=== PATIENT | male | born 1975 ===

== ENCOUNTER 2023-03-01 20:23 | Inpatient (IN) | payer OTHER ==
[~2023-03-01] VITALS: Ht 167.6 cm; Wt 78.6 kg
[2023-03-01] MEDS ORDERED: PANTOPRAZOLE SODIUM IV 80 MG in IV DEXTROSE 5% 100 ML IV ONE (21:15)
[2023-03-01] MEDS ORDERED: PANTOPRAZOLE SODIUM 40 MG VIAL ONE (21:19)
[2023-03-01 21:25] LABS: BASOPHILS # (AUTO) 0.1 K/UL (0.0-0.2); BASOPHILS % (AUTO) 1.2 % (0.0-2.0); EOSINOPHILS % (AUTO) 0.5 % (0.0-7.0); HEMATOCRIT 26.4 % (36.7-47.1); HEMOGLOBIN 7.7 g/dL (12.5-16.3); LYMPHOCYTES # (AUTO) 1.5 K/uL (0.8-4.8); LYMPHOCYTES % (AUTO) 19.6 % (20.5-51.5); MEAN CORPUSCULAR HEMOGLOBIN 16.5 uug (23.8-33.4); MEAN CORPUSCULAR HGB CONC 29 g/dL (32.5-36.3); MEAN CORPUSCULAR VOLUME 56.7 fL (73.0-96.2); MONOCYTES # (AUTO) 0.3 K/uL (0.1-1.30); MONOCYTES % (AUTO) 4.3 % (0.0-11.0); NEUTROPHILS # (AUTO) 5.8 K/uL (1.8-8.9); NEUTROPHILS % (AUTO) 74.4 % (38.5-71.5); PLATELET COUNT (AUTO) 517 K/uL (152-348); RED BLOOD CELL COUNT(AUTO) 4.65 MIL/uL (4.06-5.63); RED CELL DISTRIBUTION WIDTH 22.9 % (12.1-16.2); WHITE BLOOD COUNT (AUTO) 7.7 K/uL (3.6-10.2)
[2023-03-01 21:44] LABS: ALBUMIN 3.9 g/dL (3.4-5.0); BILIRUBIN,DIRECT 0.1 mg/dL (0.0-0.2); BILIRUBIN,TOTAL 0.7 mg/dL (0.2-1.0); TOTAL PROTEIN, SERUM 7.9 g/dL (6.4-8.2)
[2023-03-01 21:53] LABS: DIFFERENTIAL COMMENT 1
[2023-03-01] MEDS ORDERED: IV NORMAL SALINE 500 ML IV ONE (22:15)
[2023-03-01] MEDS ORDERED: ONDANSETRON 4 MG/2 ML VIAL IV ONE (22:15)
[2023-03-01 22:30] LABS: EOSINOPHILS % (MANUAL) 1 % (0-8); LYMPHOCYTES % (MANUAL) 8 % (20-40); MONOCYTES % (MANUAL) 4 % (2-10); NEUTROPHILS % (MANUAL) 87 % (42-75)
[2023-03-01] MEDS ORDERED: AMOXICILLIN-CLAVUL 875-125MG TABLET PO ONE (22:30)
[2023-03-01] MEDS ORDERED: KETOROLAC TROMETHAMINE 60 MG INJ IM ONE (22:30)
[2023-03-01 22:31] LABS: ANISOCYTOSIS 2+; HYPOCHROMASIA 2+; PLATELET ESTIMATE MARKED INCREASED
[2023-03-01 22:53] LABS: *OCCULT BLOOD STOOL NEGATIVE (NEGATIVE)
[2023-03-02] VITALS (7 sets, daily range): BP systolic 114–138; BP diastolic 61–78; TEMP 97–98.7; O2SAT 99
[2023-03-02] MEDS ORDERED: ONDANSETRON 4 MG/2 ML VIAL IV PRN (01:30)
[2023-03-02] MEDS ORDERED: MAGNESIUM HYDROXIDE 30 ML LIQUID UDC PO PRN (01:30)
[2023-03-02] MEDS ORDERED: ACETAMINOPHEN 325 MG TABLET PO PRN (01:30)
[2023-03-02] MEDS ORDERED: PANTOPRAZOLE SODIUM 40 MG VIAL IV SCH ×2 (09:00→21:00)
[2023-03-02] MEDS ORDERED: MORPHINE SULFATE 2 MG/1 ML DISP.SYRIN IV PRN (10:45)
[2023-03-02] MEDS ORDERED: IV D5/ 0.9% NACL 1,000 ML IV PRN (10:45)
[2023-03-02 11:25] LABS: BASOPHILS # (AUTO) 0.1 K/UL (0.0-0.2); BASOPHILS % (AUTO) 1.3 % (0.0-2.0); EOSINOPHILS # (AUTO) 0.1 K/uL (0.0-0.7); EOSINOPHILS % (AUTO) 2.2 % (0.0-7.0); HEMATOCRIT 27.8 % (36.7-47.1); HEMOGLOBIN 8.2 g/dL (12.5-16.3); LYMPHOCYTES # (AUTO) 1.7 K/uL (0.8-4.8); LYMPHOCYTES % (AUTO) 26.5 % (20.5-51.5); MEAN CORPUSCULAR HEMOGLOBIN 17.4 uug (23.8-33.4); MEAN CORPUSCULAR HGB CONC 30 g/dL (32.5-36.3); MEAN CORPUSCULAR VOLUME 58.9 fL (73.0-96.2); MONOCYTES # (AUTO) 0.5 K/uL (0.1-1.30); MONOCYTES % (AUTO) 7.7 % (0.0-11.0); NEUTROPHILS % (AUTO) 62.3 % (38.5-71.5); PLATELET COUNT (AUTO) 458 K/uL (152-348); RED BLOOD CELL COUNT(AUTO) 4.73 MIL/uL (4.06-5.63); RED CELL DISTRIBUTION WIDTH 25.7 % (12.1-16.2); WHITE BLOOD COUNT (AUTO) 6.4 K/uL (3.6-10.2)
[2023-03-02] MEDS ORDERED: IV NORMAL SALINE 250 ML IV ONE (11:36)
[2023-03-02] MEDS ORDERED: IOHEXOL 300MG/ML 100 ML INFUS..BTL ONE (11:36)
[2023-03-02] MEDS ORDERED: SWABABLE VALVE TRANSFER SET EA MC ONE (11:36)
[2023-03-02 11:50] LABS: CALCIUM 8.7 mg/dL (8.5-10.1); CREATININE 0.9 mg/dL (0.6-1.3); POTASSIUM 4.2 mmol/L (3.5-5.1)
[2023-03-02 11:56] LABS: ALBUMIN 3.5 g/dL (3.4-5.0); BILIRUBIN,TOTAL 1.1 mg/dL (0.2-1.0); MAGNESIUM 1.9 mg/dL (1.8-2.4); PHOSPHOROUS 3.2 mg/dL (2.5-4.9); TOTAL PROTEIN, SERUM 6.8 g/dL (6.4-8.2)
[2023-03-02 11:57] LABS: DIFFERENTIAL COMMENT 1
[2023-03-02] MEDS ORDERED: PANT40TA2 PO (14:12)
[2023-03-02] MEDS ORDERED: FERR-56 PO (14:12)
[2023-03-02] MEDS ORDERED: SUCR1TAB31 PO (14:12)
== END 2023-03-02 16:10 | disposition other institution (70) | DRG 241 ==
LOC: ER 20:26 → TELE3 03-02 02:10
PROVIDERS: ADMIT Internal Medicine; ATTEND Internal Medicine
PROC: 30233N1 Transfusion of Nonautologous Red Blood Cells into Peripheral Vein, Percutaneous Approach (ICD-10-PCS; principal; 2023-03-02)
DX: K27.0 Acute peptic ulcer, site unspecified, with hemorrhage (principal); D50.9 Iron deficiency anemia, unspecified; E66.9 Obesity, unspecified; F15.10 Other stimulant abuse, uncomplicated; F11.10 Opioid abuse, uncomplicated; D62 Acute posthemorrhagic anemia; F17.210 Nicotine dependence, cigarettes, uncomplicated; K80.20 Calculus of gallbladder without cholecystitis without obstruction; Z68.28 Body mass index [BMI] 28.0-28.9, adult; K64.9 Unspecified hemorrhoids; G89.29 Other chronic pain; Z87.11 Personal history of peptic ulcer disease
CPT/HCPCS: 36415; 70030-TC; 83550; 83690; 83735; 84100; 84484; 85025; 85610; 86850; 86900; 86901; 86920; 93005; A4606; A4663; C9113; G0378; J1885; J2405; J7040; P9016; Q9967